=== PATIENT | male | born 1955 | race Two or more races ===

== ENCOUNTER → 2017-11-16 | Outpatient (CLI) | payer OTHER ==
--- NOTE | 2017-11-16 16:33 | Diagnostic Imaging Report ---
PROCEDURE:KNEE LEFT THREE VIEWS COMPARISON:None. INDICATIONS:LEFT KNEE PAIN, SWELLING SINCE TUESDAY FINDINGS: There are no fractures, dislocations, lytic or blastic lesions. The bones are well-mineralized. Small suprapatellar effusion. Incidentally seen fabella. The soft-tissues are unremarkable. CONCLUSION: No acute fracture or dislocation of the left knee. Small suprapatellar joint effusion. Dictated by: Evens Reid M.D. on 11/16/2017 at 16:39 Electronically approved by: Evens Reid M.D. on 11/16/2017 at 16:39
== END ==
LOC: RAD 16:05
PROVIDERS: ATTEND Internal Medicine
DX: M25.562 Pain in left knee (principal); M25.462 Effusion, left knee